=== PATIENT | male | born 1970 | race Caucasian/White ===

== ENCOUNTER → 2017-05-06 | Outpatient (REF) | payer BC ==
[2017-05-06 11:52] LABS: BASO # 0.1 10^3/uL (0.0-0.2); BASO % 0.8 % (0.0-1.0); EOS # 0.2 10^3/uL (0.0-0.50); EOS % 2.5 % (0.0-3.0); HEMATOCRIT 48.7 % (42.0-52.0); HEMOGLOBIN 16.3 g/dl (14.0-18.0); IMMATURE GRANULOCYTE % 0.6 % (0-3.0); LYMPH # 1.4 10^3/uL (1.5-4.5); LYMPH % 21.7 % (24.0-44.0); MEAN CORPUSCULAR HEMOGLOBIN 30.1 pg (27.0-33.0); MEAN CORPUSCULAR HGB CONC 33.5 g/dl (32.0-36.5); MONO # 0.7 10^3/uL (0.0-0.8); MONO % 11.1 % (0.0-5.0); NEUTROPHILS % 63.3 % (36.0-66.0); PLATELET COUNT, AUTOMATED 177 10^3/uL (150-450); RED BLOOD COUNT 5.41 10^6/uL (4.30-6.10); RED CELL DISTRIBUTION WIDTH 12.3 % (11.5-14.5); WHITE BLOOD COUNT 6.3 10^3/uL (4.0-10.0)
[2017-05-06 12:04] LABS: ALBUMIN 4.1 GM/DL (3.2-5.2); ALBUMIN/GLOBULIN RATIO 1.17 (1.00-1.93); ALKALINE PHOSPHATASE 84 U/L (45-117); ALT/SGPT 73 U/L (12-78); ANION GAP 6 MEQ/L (8-16); AST/SGOT 38 U/L (7-37); BILIRUBIN,TOTAL 0.5 MG/DL (0.2-1.0); BLOOD UREA NITROGEN 15 MG/DL (7-18); CALCIUM LEVEL 9.1 MG/DL (8.5-10.1); CARBON DIOXIDE LEVEL 30 MEQ/L (21-32); CHLORIDE LEVEL 101 MEQ/L (98-107); GLOMERULAR FILTRATION RATE > 60.0 (>60); GLUCOSE, FASTING 91 MG/DL (70-100); POTASSIUM SERUM 4.6 MEQ/L (3.5-5.1); RHEUMATOID FACTOR QUANT < 10.0 IU/ML (0-15.0); SODIUM LEVEL 137 MEQ/L (136-145); TOTAL PROTEIN 7.6 GM/DL (6.4-8.2)
[2017-05-06 12:28] LABS: ERYTHROCYTE SEDIMENTATION RATE 1 mm/hr (0-15)
[2017-05-06 12:31] LABS: TOTAL 25(OH) VITAMIN D 23.1 NG/ML (30.0-100.0)
[2017-05-07 14:14] LABS: ANTINUCLEAR ANTIBODIES DIRECT Negative (Negative)
== END ==
LOC: M LABNEURO 09:06
DX: R51 Headache (principal)
CPT/HCPCS: 84443

== ENCOUNTER → 2017-06-27 | Outpatient (REF) | payer BC ==
[2017-06-27 13:59] LABS: CHOLESTEROL LEVEL 144 MG/DL (<200); CHOLESTEROL RISK RATIO 4.965 (<5); HDL CHOLESTEROL 29 MG/DL (>40); NON-HDL-C 115 MG/DL; TRIGLYCERIDES LEVEL 195 MG/DL (<150)
[2017-06-29 00:07] LABS: TISSUE TRANSGLUTAMINASE IgA <2 U/mL (0-3)
== END ==
LOC: M LABNEURO 08:10
DX: K90.0 Celiac disease (principal)
CPT/HCPCS: 80061

== ENCOUNTER 2020-05-21 10:19 | Emergency (ER) | payer BC ==
[~2020-05-21] VITALS: Ht 172.7 cm; Wt 90.9 kg
--- NOTE | 2020-05-21 10:46 | REP ---
INDICATION: acute confusion. COMPARISON: 02/11/2011 TECHNIQUE: CT BRAIN PERFORMED IN THE AXIAL PLANE. CORONAL RECONSTRUCTION IMAGES ARE PERFORMED. FINDINGS: THE VENTRICLES ARE NORMAL IN SIZE AND POSITION. THERE IS NO MIDLINE SHIFT OR MASS EFFECT. CHIN-WHITE DIFFERENTIATION IS WELL MAINTAINED. THERE IS NO ACUTE INTRACRANIAL HEMORRHAGE OR EXTRA-AXIAL FLUID COLLECTION. POSTERIOR FOSSA IS UNREMARKABLE THE BASAL CISTERNS INTACT. BONE WINDOW EXAMINATION IS UNREMARKABLE. VISUALIZED MASTOID AIR CELLS AND PARANASAL SINUSES ARE CLEAR. IMPRESSION: NEGATIVE NONCONTRAST CT BRAIN. STABLE EXAM FROM 02/11/2011. <Electronically signed by Elvin Shaw > 05/21/20 [id number]
[2020-05-21] MEDS ORDERED: FAMO40TA3 (10:58)
[2020-05-21] MEDS ORDERED: FOLI1TAB11 (10:58)
[2020-05-21] MEDS ORDERED: MESA1.2T (10:58)
[2020-05-21] MEDS ORDERED: METH2.5T48 (10:58)
[2020-05-21] MEDS ORDERED: BENA1TAB24 (10:58)
[2020-05-21] MEDS ORDERED: NS 1,000 ML IV ONE (11:25)
[2020-05-21] MEDS ORDERED: ISOVUE-370 76% 100ML VIAL As Ordered ONE (11:41)
[2020-05-21 11:54] LABS: BASO % 0.6 % (0.0-1.0); EOS # 0.1 10^3/uL (0.0-0.5); EOS % 1.4 % (0.0-3.0); HEMATOCRIT 49.8 % (42.0-52.0); HEMOGLOBIN 16.9 g/dl (13.5-17.5); LYMPH # 1.2 10^3/uL (1.5-5.0); LYMPH % 17.2 % (24.0-44.0); MEAN CORPUSCULAR HEMOGLOBIN 31.8 pg (27.0-33.0); MEAN CORPUSCULAR HGB CONC 33.9 g/dl (32.0-36.5); MEAN CORPUSCULAR VOLUME 93.6 fl (80.0-96.0); MONO # 0.6 10^3/uL (0.0-0.8); MONO % 7.9 % (2.0-8.0); NEUTROPHILS # 5.2 10^3/uL (1.5-8.5); NEUTROPHILS % 72.3 % (36.0-66.0); PLATELET COUNT, AUTOMATED 163 10^3/uL (150-450); RED BLOOD COUNT 5.32 10^6/uL (4.30-6.10); WHITE BLOOD COUNT 7.2 10^3/uL (4.0-10.0)
[2020-05-21 12:21] LABS: AMPHETAMINES LEVEL URINE NEGATIVE (NEGATIVE); BARBITURATES URINE NEGATIVE (NEGATIVE); BENZODIAZEPINES URINE NEGATIVE (NEGATIVE); CANNABINOIDS URINE NEGATIVE (NEGATIVE); COCAINE METABOLITE URINE NEGATIVE (NEGATIVE); METHADONE URINE NEGATIVE (NEGATIVE); OPIATES URINE NEGATIVE (NEGATIVE); PHENCYCLIDINE URINE NEGATIVE (NEGATIVE)
--- NOTE | 2020-05-21 12:30 | REP ---
INDICATION: AMS. COMPARISON: None. TECHNIQUE: CT contrast dose: 100 ml of intravenous Isovue 370. CT technique: Helical scanning is acquired. 2 mm high resolution axial images are reformatted. In addition maximal intensity projection, and complex plane multiplanar re-formation images are generated. Surface rendered color 3-D images are generated. FINDINGS: The bilateral common carotid arteries are widely patent as are the internal carotid arteries. There is no arterial occlusion. There is no definite stenosis of either internal carotid artery. The external carotid arteries are patent bilaterally. The vertebral arteries are patent bilaterally and are symmetrical in size. Subclavian arteries are patent. No mass or adenopathy is seen in the neck soft tissues. IMPRESSION: Patent extracranial carotid arteries with no occlusion and no definite stenosis. <Electronically signed by Titi Merlos > 05/21/20 [id number]
--- NOTE | 2020-05-21 12:39 | REP ---
INDICATION: AMS. COMPARISON: None. TECHNIQUE: CT contrast dose: 100 ml of intravenous Isovue 370. CT technique: Helical scanning is acquired. 2 mm axial images are reformatted. Maximal intensity projection and multiplanar re-formation images are generated along with 3-D surface rendered color imaging which is viewed rotational. FINDINGS: Intracranial carotid arteries are widely patent and symmetrical. Anterior, middle and posterior cerebral arteries are patent and symmetrical in appearance. Vertebral and basilar arteries are patent with no occlusion and no definite stenosis. There is no definite aneurysm or AVM. There is mild fluid or mucosal thickening in the floor the left maxillary sinus. IMPRESSION: No evidence of intracranial arterial occlusion and no definite stenosis. <Electronically signed by Titi Merlos > 05/21/20 [id number]
[2020-05-21 12:52] LABS: ACETAMINOPHEN LEVEL < 2.0 UG/ML (10.0-30.0); ALBUMIN 4.2 GM/DL (3.2-5.2); ALT/SGPT 31 U/L (12-78); BILIRUBIN,DIRECT 0.2 MG/DL (0.0-0.2); BILIRUBIN,TOTAL 0.8 MG/DL (0.2-1.0); CK-MB VALUE MASS 1.1 NG/ML (<3.6); CPK CREATINE PHOSPHOKINASE 118 U/L (39-308); ETHYL ALCOHOL (ETHANOL) < 0.003 % (0.000-0.010); MB/CK RELATIVE INDEX 0.93 (< OR =4); SALICYLATE LEVEL < 1.7 MG/DL (5.0-30.0); THYROID STIMULATING HORMONE 0.958 uIU/ML (0.358-3.740); TOTAL PROTEIN 7.5 GM/DL (6.4-8.2); TROPONIN I < 0.02 NG/ML (< 0.10)
[2020-05-21 14:00] VITALS: BP 134/87
--- NOTE | 2020-05-21 20:35 | ECGEPIP ---
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
== END 2020-05-21 14:27 | disposition home or self-care (01) ==
LOC: M ED 10:19
DX: G45.4 Transient global amnesia (principal); I10 Essential (primary) hypertension; E78.5 Hyperlipidemia, unspecified; Z79.899 Other long term (current) drug therapy; Z91.018 Allergy to other foods
CPT/HCPCS: 70450; 70496; 70498; 80047; 80076; 80143; 80307; 81001; 82077; 82550; 82553; 83605; 84443; 84484; 85025; 87798; 93005; 93041; 94760; 96360; 99285; Q9967

== ENCOUNTER 2022-09-22 09:40 | Day surgery (SDC) | payer BC ==
[~2022-09-22] VITALS: Ht 172.7 cm; Wt 104.9 kg
[~2022-09-22 09:40] MED LIST: BENA-8 PO; BENA1TAB24; FAMO40TA3; FOLI1TAB11; MESA1.2T; METH2.5T48; NS 1,000 ML IV ONE
[2022-09-22] MEDS ORDERED: propofoL 500 MG/50 ML VIAL As Ordered ONE (09:52)
[2022-09-22] MEDS ORDERED: fentaNYL 100 MCG/2 ML INJECTION As Ordered ONE (10:54)
[2022-09-22 11:52] VITALS: TEMP 97.2
[2022-09-22 12:08] VITALS: BP 119/72; O2SAT 96
== END 2022-09-22 12:18 | disposition home or self-care (01) ==
LOC: M OPP 09:40
PROVIDERS: ATTEND Internal Medicine Gastroenterology
DX: Z12.11 Encounter for screening for malignant neoplasm of colon (principal); Z86.010 Personal history of colon polyps; K64.0 First degree hemorrhoids; K57.30 Diverticulosis of large intestine without perforation or abscess without bleeding; K22.89 Other specified disease of esophagus; Z91.018 Allergy to other foods
CPT/HCPCS: 43239; 45385; 88305; J3010

== ENCOUNTER 2024-09-26 18:39 | Emergency (ER) | payer BC ==
[~2024-09-26] VITALS: Ht 172.7 cm; Wt 106.7 kg
[~2024-09-26 18:39] MED LIST changes: -NS 1,000 ML IV ONE
[2024-09-26] MEDS: PERCOCET 5MG/325MG TAB PO ONE (22:38)
[2024-09-26] MEDS ORDERED: PERC5TAB12 PO (23:57)
[2024-09-27] MEDS: OXYCODONE/APAP 5MG/325MG(HOME DOSE PACK) PO ONE (00:25)
[2024-09-27 00:32] VITALS: BP 152/89; TEMP 97.7; O2SAT 97
== END 2024-09-27 00:34 | disposition home or self-care (01) ==
LOC: M ED 18:39
DX: S90.32XA Contusion of left foot, initial encounter (principal); S90.31XA Contusion of right foot, initial encounter; Y92.9 Unspecified place or not applicable; Y93.9 Activity, unspecified; Y99.0 Civilian activity done for income or pay; W19.XXXA Unspecified fall, initial encounter; I10 Essential (primary) hypertension; Z91.018 Allergy to other foods; Z79.899 Other long term (current) drug therapy